=== PATIENT | female | born 1930 | race Caucasian/White ===

== ENCOUNTER 2016-12-02 14:27 | Emergency (ER) | payer MEDICARE, BC ==
--- OUTSIDE RECORDS SUMMARY | 2016-12-02 14:56 | XMS REPORT | Summary of Care ---
:1930 Author Organization [facility] Address [address] [place] [id number] Care Team Providers Name Role Phone Rasta Nolan Primary Care Physician Encounter Date(s): 08/19/16 - 08/19/[address] [address] [facility] Discharge Diagnosis: Common wart Discharge Diagnosis: Medicare annual wellness visit, subsequent Discharge Disposition: 01 Discharged to Home or Self Care Attending Physician: Rasta Nolan MD Referring Physician: Rasta Nolan MD Vital Signs Most recent to oldest [Reference Range]: 1 Peripheral Pulse Rate [60-100 bpm] 66 bpm (08/19/16 8:42 AM) SpO2 97 % (08/19/16 8:42 AM) Blood Pressure [90-130/60-90 mmHg] 140/60mmHg *HI* (08/19/16 8:42 AM) Mean Arterial Pressure, Cuff 87 mmHg (08/19/16 8:42 AM) Height/Length Measured 151 cm (08/19/16 8:42 AM) Weight Dosing 66.7 kg (08/19/16 8:42 AM) Weight Measured 66.7 kg (08/19/16 8:42 AM) BSA Measured 1.63 m2 (08/19/16 8:42 AM) Body Mass Index Measured 29.25 kg/m2 (08/19/16 8:42 AM) Problem List Condition Effective Dates Status Health Status Informant Benign hypertension(Confirmed) Active Tear of medial meniscus of left 2011 Resolved knee(Confirmed) Allergies, Adverse Reactions, Alerts Substance Reaction Severity Status Novocain Active Medications aspirin 81 mg oral enteric coated tablet 1 tab(s), Oral, Daily, 0 Refill(s) Start Date: 11/17/13 Status: OrderedBactrim DS 800 mg-160 mg oral tablet 1 tab(s), Oral, BID, X 3 days, # 6 tab(s), 0 Refill(s), Start Date: 08/21/15 14: 32:00 DRY CURER, Pharmacy: [facility] Start Date: 08/21/15 Stop Date: 08/24/15 Status: CompletedBactrim DS 800 mg-160 mg oral tablet 1 tab(s), Oral, BID, X 3 days, # 6 tab(s), 0 Refill(s), Start Date: 10/22/14 14: 38:00 CDT, Pharmacy: [place], [place] Start Date: 10/22/14 Stop Date: 10/25/14 Status: CompletedCipro 250 mg oral tablet 1 tab(s), Oral, q12hr interval, # 10 tab(s), 0 Refill(s), Start Date: 08/26/15 15:53:00 DRY CURER, Pharmacy: [facility] Start Date: 08/26/15 Stop Date: 01/09/16 Status: CompletedCipro 500 mg oral tablet 1 tab(s), Oral, BID, X 3 days, # 6 tab(s), 0 Refill(s), Start Date: 05/25/16 14: 02:00 CDT, Pharmacy: [facility] Start Date: 05/25/16 Stop Date: 05/28/16 Status: CompletedCipro 500 mg oral tablet 1 tab(s), Oral, q12hr, X 5 days, # 10 tab(s), 0 Refill(s), Start Date: 02/04/15 14:19:00 CDT, [facility] [place] [place] Start Date: 02/04/15 Stop Date: 02/09/15 Status: Completedlosartan 25 mg oral tablet 1 tab(s), Oral, Daily, # 30 tab(s), 5 Refill(s), Pharmacy: [facility] [place] Start Date: 11/17/13 Stop Date: 05/14/14 Status: Completedlosartan 25 mg oral tablet 1 tab(s), Oral, Daily, # 30 tab(s), 11 Refill(s), Start Date: 12/17/14 16:20:00 CDT, Pharmacy: [facility] [place], [place] Start Date: 12/17/14 Stop Date: 03/29/15 Status: Discontinuedlosartan 25 mg oral tablet 1 tab(s), Oral, Daily, # 30 tab(s), 11 Refill(s), Pharmacy: [facility] [place] Start Date: 05/14/14 Stop Date: 12/17/14 Status: Discontinuedlosartan 25 mg oral tablet 1 tab(s), Oral, Daily, # 30 tab(s) Start Date: 11/17/13 Stop Date: 11/17/13 Status: Discontinuedpotassium citrate 10 mEq oral tablet, extended release 1 tab(s), Oral, Daily, 0 Refill(s), Start Date: 06/20/15 9:00:00 DRY CURER Start Date: 06/20/15 Status: OrderedTenoretic 50 1 tab(s), Oral, Daily, 0 Refill(s) Start Date: 11/17/13 Stop Date: 06/18/14 Status: DiscontinuedTenoretic 50 oral tablet 1 tab(s), Oral, Daily, # 30 tab(s), 11 Refill(s), Start Date: 12/17/14 16:19:58 CDT, Pharmacy: [facility] [place] Start Date: 12/17/14 Stop Date: 12/26/15 Status: CompletedTenoretic 50 oral tablet 1 tab(s), Oral, Daily, # 30 tab(s), 5 Refill(s), Start Date: 06/18/14 8:44:00 DRY CURER, Pharmacy: [facility] [place] Start Date: 06/18/14 Stop Date: 12/17/14 Status: DiscontinuedTenoretic 50 oral tablet 1 tab(s), Oral, Daily, # 30 tab(s), 11 Refill(s), Start Date: 12/26/15 9:41:05 CDT Start Date: 12/26/15 Status: Ordered Results Patient Viewable Results Most recent to oldest [Reference Range]: 1 Sodium Lvl [136-145 mmol/L] 141 mmol/L (08/19/16 9:44 AM) Potassium Lvl [3.5-5.1 mmol/L] 3.5 mmol/L (08/19/16 9:44 AM) Chloride Lvl [98-107 mmol/L] 101 mmol/L (08/19/16 9:44 AM) Bicarbonate Lvl [21-32 mmol/L] 30 mmol/L (08/19/16 9:44 AM) Anion Gap [12-19] 14 (08/19/16 9:44 AM) Glucose Lvl [74-106 mg/dL] 114 mg/dL *HI* (08/19/16 9:44 AM) BUN [7-18 mg/dL] 18 mg/dL (08/19/16 9:44 AM) Creatinine Lvl [0.55-1.02 mg/dL] 0.82 mg/dL (08/19/16 9:44 AM) BUN/Creat Ratio 22 *NA* (08/19/16 9:44 AM) eGFR AA [>=60] >60 (08/19/16 9:44 AM) eGFR ARLEY [>=60] >60 (08/19/16 9:44 AM) Calcium Lvl [8.5-10.1 mg/dL] 10.1 mg/dL (08/19/16 9:44 AM) Immunizations Given and Recorded Vaccine Date Status Refusal Reason influenza virus vaccine, inactivated 05/18/16 Given influenza virus vaccine, inactivated 04/19/15 Given influenza virus vaccine, inactivated 04/23/14 Given influenza virus vaccine, inactivated 05/09/13 Recorded pneumococcal 13-valent conjugate vaccine 06/18/14 Given pneumococcal 23-polyvalent vaccine 05/26/07 Recorded tetanus-diphth toxoids (Td) adult/adol 03/19/08 Recorded zoster vaccine live 03/22/13 Recorded Procedures Procedure Date Related Diagnosis Body Site Mammogram - screening1 01/16/13 Right total knee arthroplasty2 08/22/12 EKG3 08/09/12 Left total knee arthroplasty2011 Arthroscopy of knee5 2010 Colonoscopy6 01/28/10 Colonoscopy7 11/09/07 Cholecystectomy 2000 Appendectomy 1982 Hysterectomy 1982 Tonsillectomy and adenoidectomy [id number] medial wvmdjydjcyr9ztljgnj polyp. Internal cxxaqgpkvge9gsykgky polyp Social History No data available for this section Assessment and Plan No data available for this section
--- OUTSIDE RECORDS SUMMARY | 2016-12-02 14:56 | XMS REPORT | CCD ---
:1930 Author Name DANIEL ARRINGTON Address [address] [facility] Unavailable [place], [place] [id number] Care Team Providers Name Role Phone IVÁN ALEJANDRA Attending Physician Unavailable Vital Signs Vital Sign Value Unit Date/Time Recent/Initial? Weight Measured 151.7 lbs 03/13/2015 13:40 Initial VS Height 62 in 03/13/2015 13:40 Initial VS BMI (Body Mass Index) 27.75 kg/m^2 03/13/2015 13:40 Initial VS BSA (Body Surface Area) 1.73 m^2 03/13/2015 13:40 Initial VS Allergies Allergy Code Allergy Type Reaction Status NOVACAINE {Clinical monitoring unavailable} 0 Drug allergy SWELLING Active Procedures Procedure Code Procedure Type Date CATARAC PHACOEMULS ASPIR 1341 ICD-9 CM, Volume 3 03/19/2015 INSERT LENS AT CATAR EXT 1371 ICD-9 CM, Volume 3 03/19/2015 History of Immunizations Unknown or Not Available. Problems Unknown or Not Available. Results Unknown or Not Available. Active Medications Unknown or Not Available. Medications Administered During Visit Unknown or Not Available. 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 Discharge Instructions You were admitted to [facility] on 03/19/2015 with a principal diagnosis of SENILE NUCLEAR CATARACT. You had the following procedures done:CATARACT SURG W/IOL 1 STAGEINSERT LENS AT CATAR EXT You were discharged from [facility] on 03/19/2015. Should you have any questions prior to discharge, please contact a member of your healthcare team. If you have left the hospital and have any questions, please contact your primary care physician. Chief Complaint and Reason For Visit Unknown or Not Available. Function Status Unknown or Not Available. Plan of Care Unknown or Not Available. Referral/Transition of Care Unknown or Not Available.
--- OUTSIDE RECORDS SUMMARY | 2016-12-02 14:56 | XMS REPORT | Summary of Care ---
:1930 Author Organization [facility] Address [facility] [place] [address]- Care Team Providers Name Role Phone Rasta Nolan Primary Care Physician Encounter Date(s): 09/17/16 - 09/17/[address] [address] Discharge Disposition: 01 Discharged to Home or Self Care Attending Physician: Rasta Nolan MD Admitting Physician: Rasta Nolan MD Vital Signs No data available for this section Problem List Condition Effective Dates Status Health [...] 0 Refill(s), Start Date: 08/21/15 14: 32:00 ECHO VASC TECH, [facility]acy: [facility] Start Date: 08/21/15 Stop Date: 08/24/15 Status: CompletedBactrim DS 800 mg-160 mg oral tablet 1 tab(s), Oral, BID, X 3 days, # 6 tab(s), 0 Refill(s), Start Date: 10/22/14 14: 38:00 CDT, Pharmacy: [place], [place] Start Date: 10/22/14 Stop Date: 10/25/14 Status: CompletedCipro 250 mg oral tablet 1 tab(s), Oral, q12hr interval, # 10 tab(s), 0 Refill(s), Start Date: 08/26/15 15:53:00 ECHO VASC TECH, Pharmacy: [facility] Start Date: 08/26/15 Stop Date: 01/09/16 Status: CompletedCipro 500 mg oral tablet 1 tab(s), Oral, BID, X 3 days, # 6 tab(s), 0 Refill(s), Start Date: 05/25/16 14: 02:00 CDT, Pharmacy: [facility] Start Date: 05/25/16 Stop Date: 05/28/16 Status: CompletedCipro 500 mg oral tablet 1 tab(s), Oral, q12hr, X 5 days, # 10 tab(s), 0 Refill(s), Start Date: 02/04/15 14:19:00 CDT, Pharmacy: [facility] [place], [place] Start Date: 02/04/15 Stop Date: 02/09/15 Status: Completedlosartan 25 mg oral tablet 1 tab(s), Oral, Daily, # 30 tab(s), 5 Refill(s), [place] Start Date: 11/17/13 Stop Date: 05/14/14 Status: Completedlosartan 25 mg oral tablet 1 tab(s), Oral, Daily, # 30 tab(s), 11 Refill(s), Start Date: 12/17/14 16:20:00 CDT, [facility] [place] Start Date: 12/17/14 Stop Date: 03/29/15 Status: Discontinuedlosartan 25 mg oral tablet 1 tab(s), Oral, Daily, # 30 tab(s), 11 Refill(s), [facility] [place] [place] Start Date: 05/14/14 Stop Date: 12/17/14 Status: Discontinuedlosartan 25 mg oral tablet 1 tab(s), Oral, Daily, # 30 tab(s) Start Date: 11/17/13 Stop Date: 11/17/13 Status: Discontinuedomeprazole 20 mg oral delayed release capsule 1 cap(s), Oral, Daily, # 60 cap(s), 0 Refill(s), Start Date: 09/16/16 16:43:00 ECHO VASC TECH, Pharmacy: [facility] Start Date: 09/16/16 Status: Orderedpotassium citrate 10 mEq oral tablet, extended release 1 tab(s), Oral, Daily, 0 Refill(s), Start Date: 06/20/15 9:00:00 ECHO VASC TECH Start Date: 06/20/15 Status: OrderedTenoretic 50 1 tab(s), Oral, Daily, 0 Refill(s) Start Date: 11/17/13 Stop Date: 06/18/14 Status: DiscontinuedTenoretic 50 oral tablet 1 tab(s), Oral, Daily, # 30 tab(s), 11 Refill(s), Start Date: 12/17/14 16:19:58 CDT, Pharmacy: [place], [place] Start Date: 12/17/14 Stop Date: 12/26/15 Status: CompletedTenoretic 50 oral tablet 1 tab(s), Oral, Daily, # 30 tab(s), 5 Refill(s), Start Date: 06/18/14 8:44:00 ECHO VASC TECH, Pharmacy: [place], [place] Start Date: 06/18/14 Stop Date: 12/17/14 Status: DiscontinuedTenoretic 50 oral tablet 1 tab(s), Oral, Daily, # 30 tab(s), 11 Refill(s), Start Date: 12/26/15 9:41:05 CDT Start Date: 12/26/15 Status: Ordered Results Patient Viewable Results Most recent to oldest [Reference Range]: 1 FE [50-170 mcg/dL] 58 mcg/dL (09/17/16 7:38 AM) Immunizations Vaccine Date Refusal Reason influenza virus vaccine, inactivated 05/18/16 influenza virus vaccine, inactivated 04/19/15 influenza virus vaccine, inactivated 04/23/14 influenza virus vaccine, inactivated 05/09/13 pneumococcal 13-valent conjugate vaccine 06/18/14 pneumococcal 23-polyvalent vaccine 05/26/07 tetanus-diphth toxoids (Td) adult/adol 03/19/08 zoster vaccine live 03/22/13 Procedures Procedure Date Related Diagnosis Body Site Mammogram - screening1 01/16/13 Right total knee arthroplasty2 08/22/12 EKG3 08/09/12 Left total knee arthroplasty4 2011 Arthroscopy of knee5 2010 Colonoscopy6 01/28/10 Colonoscopy7 11/09/07 Cholecystectomy 2000 Appendectomy 1982 Hysterectomy 1982 Tonsillectomy and adenoidectomy [id number] medial brffwmhfksf6izegmmp polyp. Internal doewdyjpjbc6rhvoehn polyp Social History No data available for this section Assessment and Plan No data available for this section
--- OUTSIDE RECORDS SUMMARY | 2016-12-02 14:56 | XMS REPORT | CCD ---
:1930 Author Name DANIEL ARRINGTON Address [address] Unavailable [place], [place] [id number] Care Team Providers Name Role Phone IVÁN ALEJANDRA Attending Physician Unavailable Vital Signs Vital Sign Value Unit Date/Time Recent/Initial? Weight Measured 151.6 lbs 03/26/2015 10:14 Initial VS Height 61.5 in 03/26/2015 10:14 Initial VS BMI (Body Mass Index) 28.18 kg/m^2 03/26/2015 10:14 Initial VS BSA (Body Surface Area) 1.73 m^2 03/26/2015 10:14 Initial VS Allergies Allergy Code Allergy Type Reaction Status NOVACAINE {Clinical monitoring unavailable} 0 Drug allergy SWELLING Active Procedures Procedure Code Procedure Type Date CATARAC PHACOEMULS ASPIR 1341 ICD-9 CM, Volume 3 03/26/2015 INSERT LENS AT CATAR EXT 1371 ICD-9 CM, Volume 3 03/26/2015 History of Immunizations Unknown or Not Available. Problems Unknown or Not Available. Results Unknown or Not Available. Active Medications Unknown or Not Available. Medications Administered During Visit Unknown or Not Available. Encounters Encounter Diagnosis Diagnosis Code Start Date SENILE NUCLEAR CATARACT 19163 03/26/2015 Social History Smoking Status Code Start Date End Date Never smoker [id number] Patient Decision Aids Unknown or Not Available. Discharge Instructions You were admitted to [facility] on 03/26/2015 with a principal diagnosis of SENILE NUCLEAR CATARACT. You had the following procedures done:CATARACT SURG W/IOL 1 STAGEINSERT LENS AT CATAR EXT You were discharged from [facility] on 03/26/2015. Should you have any questions prior to [...]
--- OUTSIDE RECORDS SUMMARY | 2016-12-02 14:56 | XMS REPORT | Summary of Care ---
:1930 Author Organization [facility] Address [address] [place] [id number] Care Team Providers Name Role Phone Rasta Nolan Primary Care Physician Encounter Date(s): 01/09/16 - 01/09/[address] [address] [facility] Discharge Diagnosis: Benign hypertension Discharge Disposition: Discharged to Home or Self Care Attending Physician: Rasta Nolan MD Referring Physician: Rasta Nolan MD Vital Signs Most recent to oldest [Reference Range]: 1 2 Peripheral Pulse Rate [60-100 bpm] 60 bpm (01/09/16 8:06 AM) Blood Pressure [90-130/60-90 mmHg] 120/64mmHg 140/80mmHg (01/09/16 8:29 AM) *HI* (01/09/16 8:06 AM) Mean Arterial Pressure, Cuff 83 mmHg 100 mmHg (01/09/16 8:29 AM) (01/09/16 8:06 AM) Most recent to oldest [Reference Range]: 1 2 Height/Length Measured 151 cm (01/09/16 8:06 AM) Weight Dosing 68.7 kg (01/09/16 8:06 AM) Weight Measured 68.7 kg (01/09/16 8:06 AM) BSA Measured 1.65 m2 (01/09/16 8:06 AM) Body Mass Index Measured 30.13 kg/m2 (01/09/16 8:06 AM) Problem List Condition Effective Dates Status [...] 0 Refill(s), Start Date: 08/21/15 14: 32:00 RUBY RAILS DEVELOPER, Pharmacy: [facility] Start Date: 08/21/15 Stop Date: 08/24/15 Status: CompletedBactrim DS 800 mg-160 mg oral tablet 1 tab(s), Oral, BID, X 3 days, # 6 tab(s), 0 Refill(s), Start Date: 10/22/14 14: 38:00 CDT, Pharmacy: [facility] [place], [place] Start Date: 10/22/14 Stop Date: 10/25/14 Status: CompletedCipro 250 mg oral tablet 1 tab(s), Oral, q12hr interval, # 10 tab(s), 0 Refill(s), Start Date: 08/26/15 15:53:00 RUBY RAILS DEVELOPER, Pharmacy: [facility] Start Date: 08/26/15 Stop Date: 01/09/16 Status: CompletedCipro 500 mg oral tablet 1 tab(s), Oral, q12hr, X 5 days, # 10 tab(s), 0 Refill(s), Start Date: 02/04/15 14:19:00 CDT, Pharmacy: [facility] [place], [place] Start Date: 02/04/15 Stop Date: 02/09/15 Status: Completedlosartan 25 mg oral tablet 1 tab(s), Oral, Daily, # 30 tab(s), 5 Refill(s), Pharmacy: [facility] [place], [place] Start Date: 11/17/13 Stop Date: 05/14/14 Status: Completedlosartan 25 mg oral tablet 1 tab(s), Oral, Daily, # 30 tab(s), 11 Refill(s), Start Date: 12/17/14 16:20:00 CDT, Pharmacy: [facility] [place], [place] Start Date: 12/17/14 Stop Date: 03/29/15 Status: Discontinuedlosartan 25 mg oral tablet 1 tab(s), Oral, Daily, # 30 tab(s), 11 Refill(s), [facility] [place] Start Date: 05/14/14 Stop Date: 12/17/14 Status: Discontinuedlosartan 25 mg oral tablet 1 tab(s), Oral, Daily, # 30 tab(s) Start Date: 11/17/13 Stop Date: 11/17/13 Status: Discontinuedpotassium citrate 10 mEq oral tablet, extended release 1 tab(s), Oral, Daily, 0 Refill(s), Start Date: 06/20/15 9:00:00 RUBY RAILS DEVELOPER Start Date: 06/20/15 Status: OrderedTenoretic 50 1 tab(s), Oral, Daily, 0 Refill(s) Start Date: 11/17/13 Stop Date: 06/18/14 Status: DiscontinuedTenoretic 50 oral tablet 1 tab(s), Oral, Daily, # 30 tab(s), 11 Refill(s), Start Date: 12/17/14 16:19:58 CDT, [facility] [place] Start Date: 12/17/14 Stop Date: 12/26/15 Status: CompletedTenoretic 50 oral tablet 1 tab(s), Oral, Daily, # 30 tab(s), 5 Refill(s), Start Date: 06/18/14 8:44:00 RUBY RAILS DEVELOPER, Pharmacy: [place], [place] Start Date: 06/18/14 Stop Date: 12/17/14 Status: DiscontinuedTenoretic 50 oral tablet 1 tab(s), Oral, Daily, # 30 tab(s), 11 Refill(s), Start Date: 12/26/15 9:41:05 CDT Start Date: 12/26/15 Status: Ordered Results No data available for this section Immunizations Vaccine Date Refusal Reason influenza virus vaccine, inactivated 04/19/15 influenza virus [...] Appendectomy 1982 Hysterectomy 1982 Tonsillectomy and adenoidectomy [id number] medial iubfnydownc9suaxjsc polyp. Internal [id number] polyp Social History No data available for this section Assessment and Plan No data available for this section
--- OUTSIDE RECORDS SUMMARY | 2016-12-02 14:56 | XMS REPORT | Summary of Care ---
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, Pharmacy: [facility] Start Date: 08/21/15 Stop Date: 08/24/15 Status: CompletedBactrim DS 800 mg-160 mg oral tablet 1 tab(s), Oral, BID, X 3 days, # 6 tab(s), 0 Refill(s), Start Date: 10/22/14 14: 38:00 CDT, Pharmacy: [place], [place] Start Date: 10/22/14 Stop Date: 10/25/14 Status: CompletedCipro 250 mg oral tablet 1 tab(s), Oral, q12hr interval, # 10 tab(s), 0 Refill(s), Start Date: 08/26/15 15:53:00 POTATO CHIP PROCESSING SUPERVISOR, Pharmacy: [facility] Start Date: 08/26/15 Stop Date: 01/09/16 Status: CompletedCipro 500 mg oral tablet 1 tab(s), Oral, BID, X 3 days, # 6 tab(s), 0 Refill(s), Start Date: 05/25/16 14: 02:00 CDT, Pharmacy: [facility] Start Date: 05/25/16 Stop Date: 05/28/16 Status: CompletedCipro 500 mg oral tablet 1 tab(s), Oral, q12hr, X 5 days, # 10 tab(s), 0 Refill(s), Start Date: 02/04/15 14:19:00 CDT, [facility] [place] [place] Start Date: 02/04/15 Stop Date: 02/09/15 Status: Completedlosartan 25 mg oral tablet 1 tab(s), Oral, Daily, # 30 tab(s), 5 Refill(s), [facility] [place] [place] Start Date: 11/17/13 Stop Date: 05/14/14 Status: Completedlosartan 25 mg oral tablet 1 tab(s), Oral, Daily, # 30 tab(s), 11 Refill(s), Start Date: 12/17/14 16:20:00 CDT, [facility] [place] Start Date: 12/17/14 Stop Date: 03/29/15 Status: Discontinuedlosartan 25 mg oral tablet 1 tab(s), Oral, Daily, # 30 tab(s), 11 Refill(s), [facility] [place] [place] Start Date: 05/14/14 Stop Date: 12/17/14 Status: Discontinuedlosartan 25 mg oral tablet 1 tab(s), Oral, Daily, # 30 tab(s) Start Date: 11/17/13 Stop Date: 11/17/13 Status: Discontinuedomeprazole 20 mg oral delayed release capsule 1 cap(s), Oral, Daily, # 60 cap(s), 0 Refill(s), Start Date: 09/16/16 16:43:00 POTATO CHIP PROCESSING SUPERVISOR, Pharmacy: [facility] Start Date: 09/16/16 Status: Orderedpotassium citrate 10 mEq oral tablet, extended release 1 tab(s), Oral, Daily, 0 Refill(s), Start Date: 06/20/15 9:00:00 POTATO CHIP PROCESSING SUPERVISOR Start Date: 06/20/15 Status: OrderedTenoretic 50 1 tab(s), Oral, Daily, 0 Refill(s) Start Date: 11/17/13 Stop Date: 06/18/14 Status: DiscontinuedTenoretic 50 oral tablet 1 tab(s), Oral, Daily, # 30 tab(s), 11 Refill(s), Start Date: 12/17/14 16:19:58 CDT, [facility] [place] Start Date: 12/17/14 Stop Date: 12/26/15 Status: CompletedTenoretic 50 oral tablet 1 tab(s), Oral, Daily, # 30 tab(s), 5 Refill(s), Start Date: 06/18/14 8:44:00 POTATO CHIP PROCESSING SUPERVISOR, Pharmacy: [place], [place] Start Date: 06/18/14 Stop Date: 12/17/14 Status: DiscontinuedTenoretic 50 oral tablet 1 tab(s), Oral, Daily, # 30 tab(s), 11 Refill(s), Start Date: 12/26/15 9:41:05 CDT Start Date: 12/26/15 Status: Ordered Results Patient Viewable Results Most recent to oldest [Reference Range]: 1 WBC [4.8-10.8 thou/mm3] 6.9 thou/mm3 (09/17/16 7:39 AM) RBC [4.20-5.40 Mil/mm3] 4.71 Mil/mm3 (09/17/16 7:39 AM) Hgb [12.0-16.0 g/dL] 13.6 g/dL (09/17/16 7:39 AM) Hct [37.0-47.0 %] 39.9 % (09/17/16 7:39 AM) MCV [80.0-94.0 fL] 84.7 fL (09/17/16 7:39 AM) MCH [25.0-38.0 pg/cell] 28.9 pg/cell (09/17/16 7:39 AM) MCHC [31.0-37.0 g/dL] 34.1 g/dL (09/17/16 7:39 AM) RDW [11.6-14.8 %] 14.1 % (09/17/16 7:39 AM) Platelet [130-400 thou/mm3] 265 thou/mm3 (09/17/16 7:39 AM) MPV [0.0-99.8 fL] 9.5 fL (09/17/16 7:39 AM) Immunizations Vaccine Date Refusal Reason influenza [...] Colonoscopy6 01/28/10 Colonoscopy7 11/09/07 Cholecystectomy 2000 Appendectomy 1981 Hysterectomy 1981 Tonsillectomy and adenoidectomy [id number] medial icrygbkpfwh1bkscfpr polyp. Internal [id number] polyp Social History No data available for this section Assessment and Plan No data available for this section
[2016-12-02 15:04] LABS: Hemoglobin 14.6 gm/dL (12.5-16.0); Mean Cell Volume 82.9 fl (78-100); Mean Corpuscular Hemoglobin 28.1 pg (27-31); Neutrophil # 4.7 K/mm3 (1.3-6.0); Neutrophil % 71.5 % (42-75.0); Platelet Count 263 K/mm3 (150-450); Red Blood Count 5.19 M/mm3 (4.2-5.4); Red Cell Distribution Width 13.3 % (11.5-14.0); White Blood Count 6.5 K/mm3 (4.0-10.5)
--- NOTE | 2016-12-02 15:05 | ERNOTE ---
Dizziness ER Record Presenting Symptoms: dizziness Time Seen by Provider: 12/02/16 14:30 Source: patient Immunizations: IMMUNIZATION HX Immunizations Up to Date Yes History of Influenza Vaccine Yes Hx Pneumococcal Vaccination Yes Allergies/Adverse Reactions: Allergies Allergy/AdvReac Type Severity Reaction Status Date / Time No Known Allergies Allergy Unverified 12/02/16 14:42 Home Medications: HOME MEDICATIONS Aspirin [Aspirin EC] 81 mg PO DAILY 12/02/16 [Last Taken Unknown] Lisinopril [Zestril] 10 mg PO DAILY #30 tablet 12/02/16 [Last Taken Unknown] Metoprolol Succinate [Toprol Xl] 50 mg PO DAILY 12/02/16 [Last Taken Unknown] Nitrofurantoin/Nitrofuran Mac [Macrobid] 100 mg PO Q12H #14 cap 12/02/16 [Last Taken Unknown] Potassium Gluconate [Potassium] 99 mg PO DAILY 12/02/16 [Last Taken Unknown] - History of Present Illness Narrative: Patient states that she has been lightheaded on and off for about two weeks. Her symptoms got worse today and her PCP is not in the office so she is coming to the ER for evaluation. The symptoms usually last just a few minutes and occurred about twice a day. She was treated for a UTI with antibiotics which she finished about ten days ago , has increased urinary frequency again. She saw her PCP two days ago and her HTN meds where changes from atenolol/chlorthal to metoprolol, took the first dose yesterday. She denies any additional symptoms or aggravating or alleviating factors affecting the lightheadedness Timing and Duration: gone now Severity: max: moderate Associated Symptoms: Absent: hearing loss, ear pain, nausea, vomiting, headache , weakness, numbness, light headedness Sense of movement: Absent: spinning Usually:: Present: walks w/o assistance Modifying Factors - (Improves): Reports: nothing. Denies: changing position, movement of head Modifying Factors - (Worsens): Reports: nothing. Denies: changing position, movement of head Prior Treament: Reports: recently seen. Denies: currently on antibiotics Review of Systems - Review of Systems Constitutional: Present: recent illness. Absent: fever, chills EYE: Absent: blurred vision, double vision ENT: Absent: nose congestion Respiratory: Absent: shortness of breath Cardiology: Absent: chest pain, palpitations Gastrointestinal/Abdominal: Absent: nausea, vomiting, diarrhea, abdominal pain Genitourinary: Present: no symptoms reported. Absent: frequency, dysuria Musculoskeletal: Absent: neck pain Neurological: Absent: headache, weakness, numbness - Patient's Past Medical History Patient History - Medical: UTI'S Patient History - Cardiac/Respiratory: Hypertension Patient History - Cancer: No Hx of Cancer Patient History - Surgical Procedures: Appendectomy, Hysterectomy, Total Knee Replacement Patient History - Other: None LMP (females 10-50): Menopausal - Social History Living Situations: home Psych History: No pertinent hx Smoking Status: Never smoker Alcohol Use: none Drug Use: none - Immunizations Immunizations Up to Date: Yes Hx Pneumococcal Vaccination: Yes History of Influenza Vaccine: Yes Physical Exam - Physical Exam General Appearance: Present: wd/wn, no apparent distress Eye Exam: Normal inspection: bilateral, PERRL: bilateral, EOMI: bilateral Ears, Nose, Throat: Present: normal ENT inspection, normal pharynx Neck: Present: normal inspection, nontender Respiratory: Present: no respiratory distress, normal breath sounds, no accessory muscle use, lungs clear Cardiovascular/Chest: Present: regular rate, rhythm, no murmur Gastrointestinal/Abdominal: Present: normal bowel sounds, nontender, nondistended Extremity Exam: Present: no edema Neurological Exam: Present: alert, oriented, normal mood/affect, no motor/ sensory deficits, 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 - Vital Signs Patient's Vital Signs:: I have reviewed the patient's vital signs. Vital Signs: Vital Signs 12/02/16 14:35 Temperature 36.5 C Pulse Rate 74 Respiratory 16 Rate Blood Pressure 147/87 O2 Sat by Pulse 98 Oximetry - EKG EKG: NSR, other - frequent PVCs EKG read: Interp. by me - Progress/Reassessment Chief Complaint: Dizziness Progress Note-Subjective: 12/02/16 17:03 discussed results with patient and family, HR on monitor repeatedly goes down to 50's, discussed that metoprolol might not be a the best medication for her blood pressure as the intermittent low heart rate might be a cause of her symptoms, She is not aware of having been on any other medications before, suggested lisinopril, check with her PCP, if he does not provide different prescription by tomorrow start taking lisinopril Departure Clinical Impression: Sinus bradycardia UTI (urinary tract infection) Qualifiers: Urinary tract infection type: acute cystitis Hematuria presence: without hematuria Qualified Code(s): N30.00 - Acute cystitis without hematuria - Departure Disposition: Home self-care Condition: Good Instructions: Bradycardia, Urinary Tract Infection, Adult, [id number] Additional Instructions: since the blood pressure medication is reducing your heart rate as well as your blood pressure and your heart rate goes low (to 55 beat per minute) I think you should be on a different blood pressure medication stop the metoprolol, try to get hold of your doctor, unless you get a different prescription by tomorrow start taking the medication prescribed here Referrals: Rasta Nolan MD [Primary Care Provider] - Prescriptions: Lisinopril [Zestril] 10 mg PO DAILY #30 tablet Nitrofurantoin/Nitrofuran Mac [Macrobid] 100 mg PO Q12H #14 cap
[2016-12-02 15:18] LABS: ALT 23 U/L (19-67); AST 20 U/L (0-48); Alkaline Phosphatase * 68 U/L (50-170); Anion Gap 8.6 mmol/L (6.8-13.8); BUN/Creatinine Ratio 20.2 (9.0-21.6); Bilirubin, Total 0.6 mg/dL (0.0-1.1); Blood Urea Nitrogen 17 mg/dL (3-23); Ca. Corrected For Albumin 9.8 mg/dL (8.4-10.2); Calcium * 10.1 mg/dL (7.9-10.9); Carbon Dioxide 34.5 mmol/L (24-32.6); Chloride 100 mmol/L (97-106); Glucose * 113 mg/dL (70-110); Potassium 3.1 mmol/L (3.4-4.6); Sodium 140 mmol/L (132-142); Total Protein 7.9 gm/dL (6.2-8.2); Troponin I Less than 0.017 ng/ml (0.00-0.10)
[2016-12-02 16:26] LABS: Urine Bilirubin Negative (NEGATIVE); Urine Blood Negative /ul (NEGATIVE); Urine Ketone Negative (NEGATIVE); Urine Nitrite Negative (NEGATIVE); Urine Protein Negative (NEGATIVE); Urine Urobilinogen Normal (NORMAL)
[2016-12-02 16:33] LABS: Urine Appearance Clear; Urine Color Yellow
[2016-12-02 16:34] LABS: Urine Bacteria TRACE; Urine RBC None Seen /hpf (0-5)
[2016-12-02 17:08] VITALS: BP 157/66
== END 2016-12-02 17:15 | disposition home or self-care (01) ==
LOC: ER 14:27
DX: R00.1 Bradycardia, unspecified (principal); N30.00 Acute cystitis without hematuria; I10 Essential (primary) hypertension

== ENCOUNTER 2020-07-04 13:31 | Observation (INO) ==
[2020-07-04] MEDS ORDERED: diphenhydrAMINE HCL 50 MG/ML VIAL IM ONE (17:30)
[2020-07-04] MEDS ORDERED: MORPHINE SULFATE 10 MG/ML SYRG IM ONE (17:30)
[2020-07-04] MEDS ORDERED: ORPHENADRINE CITRATE 30 MG/ML VIAL IM ONE (17:30)
--- NOTE | 2020-07-04 17:35 | ERNOTE ---
Back Pain ER HPI Date of Service: 07/04/20 Presenting Symptoms: other - Back pain Time Seen by Provider: 07/04/20 17:09 Source: patient Immunizations: IMMUNIZATION HX Immunizations Up to Date Yes History of Influenza Vaccine Yes Hx Pneumococcal Vaccination No Allergies/Adverse Reactions: Allergies No Known Allergies Allergy (Verified 07/04/20 13:57) Home Medications: HOME MEDICATIONS acetaminophen 325 mg tablet 650 mg PO Q4H PRN tab 12/12/18 [Last Taken Unknown] apixaban 5 mg tablet 2.5 mg PO BID 12/12/18 [Last Taken Unknown] calcium carbonate 500 mg calcium (1,250 mg) chewable tablet 500 mg PO BID PRN 12/12/18 [Last Taken Unknown] docusate sodium 100 mg capsule 100 mg PO BID PRN 12/12/18 [Last Taken Unknown] metoprolol tartrate 25 mg tablet 12.5 mg PO BID tab 12/12/18 [Last Taken Unknown] valacyclovir 500 mg tablet 1,000 mg PO Q8H PRN #6 tab 12/14/18 [Last Taken Unknown] cranberry fruit 450 mg tablet 450 mg PO DAILY 07/18/19 [Last Taken Unknown] lorazepam 0.5 mg tablet 0.5 mg PO TID PRN #90 tab 04/22/20 [Last Taken Unknown] Amox Tr/Potassium Clavulanate [Augmentin 875-125 Tablet] 875 mg PO Q12H #20 tab 06/16/20 [Last Taken Unknown] ondansetron 8 mg disintegrating tablet 8 mg PO Q8H PRN #20 tab 06/18/20 [Last Taken Unknown] Acetaminophen 500 mg PO PRN 07/04/20 [Last Taken Unknown] Ascorbic Acid [Vitamin C] 500 mg PO BID 07/04/20 [Last Taken Unknown] Bacillus Coagulans/Inulin [Probiotic Formula (inulin)] 1 cap PO BID 07/04/20 [Last Taken Unknown] Bismuth Subsalicylate [Pepto Bismol 262 MG/15 ML Suspension] 15 ml PO QID PRN 07/04/20 [Last Taken Unknown] Cholecalciferol (Vitamin D3) [Vitamin D3] 1,000 unit PO DAILY 07/04/20 [Last Prasad en Unknown] Cyanocobalamin (Vitamin B-12) [Vitamin B-12] 1,000 mcg PO DAILY 07/04/20 [Last Taken Unknown] Donepezil HCl 1 tab PO 1800 07/04/20 [Last Taken Unknown] Estradiol 0.5 gm VG TUFR 07/04/20 [Last Taken Unknown] Guaifenesin/Codeine Phosphate [Guaifenesin-Codeine Liquid] 5 ml PO Q6H PRN 07/04/20 [Last Taken Unknown] Loperamide HCl [Anti-Diarrheal] 2 mg PO TID 07/04/20 [Last Taken Unknown] Loperamide HCl [Imodium A-D] 2 mg PO DAILY PRN 07/04/20 [Last Taken Unknown] Magnesium Carb/Aluminum Hydrox [Gaviscon Es Tablet Chew] 2 tab PO BID PRN 07/04/20 [Last Taken Unknown] Melatonin [Melatin] 3 mg PO 1800 07/04/20 [Last Taken Unknown] Methenamine Hippurate 1 tab PO DAILY 07/04/20 [Last Taken Unknown] Omeprazole 1 tab PO DAILY 07/04/20 [Last Taken Unknown] Propafenone HCl 1 tab PO BID 07/04/20 [Last Taken Unknown] acetaminophen 300 mg-codeine 60 mg tablet 1 tab PO Q6H PRN #60 tab 07/04/20 [Last Taken Unknown] Narrative: This patient is an 89-year-old female who is here with severe back pain. She has had back pain for the past couple weeks but it has gotten worse. She has not been able to get out of bed on her own the past couple days because of the pain. She has a difficult time describing the pain. It sounds like it sharp. The pain is all across her lumbar back. The pain is worse with movement. It does not radiate. She denies bowel or bladder dysfunction. She has been in bed quite a bit. She was diagnosed with COVID-19 about a month ago. She has had some diarrhea recently. She has had a recent UTI. She denies any urinary symptoms at this time. She has not had a fever. Review of Systems - Review of Systems All Other Systems: All systems neg except as marked Medical History (Last Reviewed 07/04/20 @ 17:32 by Rasta Mart MD) Bowel and bladder incontinence (Chronic) Syncope and collapse (Acute) 1 time event last Wednesday. Insomnia (Chronic) Anxiety (Chronic) Chronic UTI (Chronic) sees dr hughes[facility] Arthritis (Chronic) Hypertension (Chronic) sees dr vivar- [facility] cards [facility]rial [facility] Alzheimer disease (Chronic) sees dr lin Surgical History: Surgical History (Last Reviewed 07/04/20 @ 17:33 by Rasta Matr MD) History of appendectomy History of cholecystectomy Knee joint replacement by other means Family History: Family History (Last Reviewed 07/04/20 @ 17:33 by Rasta Mart MD) Mother , age 94 Hypertension Cancer liver cancer Father , age 90's Hypertension Pulmonary embolism Social History: (Last Reviewed 07/04/20 @ 17:33 by Rasta Mart MD) Social History: group home: No Marital status: / household members: other current occupational status: retired 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 She appears to be in no distress at rest. Head Exam: Present: normal inspection, no evidence of injury Eye Exam: Normal inspection: bilateral Ears, Nose, Throat: Present: normal ENT inspection Neck: Present: normal inspection, supple Respiratory: Present: no respiratory distress, normal breath sounds - Anteriorly Cardiovascular/Chest: Present: regular rate, rhythm, no murmur, normal peripheral pulses Gastrointestinal/Abdominal: Present: normal bowel sounds, nondistended, soft, no organomegaly, tenderness - She has pain with palpation. It seems to cause increased pain in her back. Extremity Exam: Present: normal inspection, non-tender Neurological Exam: Present: alert, oriented, normal mood/affect, no motor/sensory deficits - She has normal sensation to light touch and push/pull of the lower extremities. Reflexes are decreased bilaterally. Skin Exam: Present: normal color, warm/dry Progress - Date and Time Seen: Date and Time: 07/04/20 22:50 The patient was initially given morphine, orphenadrine, and Benadryl.. She went to CAT scan. After coming back, she still complained of significant pain and cried out in pain with certain movements. She asked if she was going to be admitted. She was given 2 tabs of hydrocodone/acetaminophen. I spoke with her again after the CT results were available. She still did not feel like she would be able to go home and thought she would be better off staying in the hospital overnight. I spoke with Dr. Grace, who agreed to keep the patient here for observation. - Results and Orders Patient's Lab Results:: I have reviewed the patient's lab results. Results and Orders: CT Lumbar W/O *~ Exam Date: 07/04/2020 18:37 Ordering Physician: Rasta Mart MD HISTORY: Severe back pain UNENHANCED CT SCAN OF THE LUMBAR SPINE. COMPARISON: None Technique: Axial CT images were obtained through the lumbar spine without the use of IV or myelographic contrast. Sagittal and coronal reconstructions were obtained. Individualized dose optimization technique was used for the performed procedure including automated exposure control, adjustment of the mA and/or kV according to patient size and/or the iterative reconstruction technique. Findings: There is diffuse osteopenia. The lumbar spine maintains a normal lordotic curvature on the sagittal images but there is a lumbar scoliosis with convexity directed to the left on the coronal images. There are 5 lumbar type vertebrae. There is a compression fracture involving T11, which is chronic in appearance. I do not see evidence for definable acute compression fracture, spondylolysis, or spondylolisthesis. There is diffuse disc space narrowing involving the lumbar spine with varying degrees of degenerative spurring involving the endplates. There is marked degenerative spurring involving the facet joints of the mid to lower lumbar spine. The disc material is suboptimally visualized on this study. There is mild canal stenosis at L2/3, mild to moderate Canal stenosis at L3/4, and marked canal stenosis at L4/5. There is arteriosclerotic calcification within the aorta without focal aneurysm. The paraspinal musculature appears normal and I do not see evidence for hematoma or retroperitoneal adenopathy. IMPRESSION: 1. CHRONIC APPEARING COMPRESSION FRACTURE INVOLVING T11. 2. MODERATE DEGENERATIVE SPURRING INVOLVING THE FACET JOINTS OF THE MID TO LOWER LUMBAR SPINE 3. NO DEFINABLE ACUTE OSSEOUS ABNORMALITY. 4. DIFFUSE DISC SPACE NARROWING WITH DEGENERATIVE SPURRING IN THE ENDPLATES. THERE IS MILD CANAL STENOSIS AT L2/3, MILD TO MODERATE CANAL STENOSIS AT L3/4, AND MARKED CANAL STENOSIS AT L4/5. 5. FOLLOW-UP MRI OF THE LUMBAR SPINE IS RECOMMENDED. Electronically signed by Higinio Be M.D.. - Vital Signs Patient's Vital Signs:: I have reviewed the patient's vital signs. Vital Signs: Vital Signs 07/04/20 13:32 Temperature 35.7 C L Pulse Rate 77 Respiratory Rate 16 Blood Pressure 149/63 O2 Sat by Pulse Oximetry 96 - CT/Ultrasound CT/Ultrasound Narrative: CT Lumbar W/O *~ Exam Date: 07/04/2020 18:37 Ordering Physician: Rasta Mart MD HISTORY: Severe back pain UNENHANCED CT SCAN OF THE LUMBAR SPINE. COMPARISON: None Technique: Axial CT images were obtained through the lumbar spine without the use of IV or myelographic contrast. Sagittal and coronal reconstructions were obtained. Individualized dose optimization technique was used for the performed procedure including automated exposure control, adjustment of the mA and/or kV according to patient size and/or the iterative reconstruction technique. Findings: There is diffuse osteopenia. The lumbar spine maintains a normal lordotic curvature on the sagittal images but there is a lumbar scoliosis with convexity directed to the left on the coronal images. There are 5 lumbar type vertebrae. There is a compression fracture involving T11, which is chronic in appearance. I do not see evidence for definable acute compression fracture, spondylolysis, or spondylolisthesis. There is diffuse disc space narrowing involving the lumbar spine with varying degrees of degenerative spurring involving the endplates. There is marked degenerative spurring involving the facet joints of the mid to lower lumbar spine. The disc material is suboptimally visualized on this study. There is mild canal stenosis at L2/3, mild to moderate Canal stenosis at L3/4, and marked canal stenosis at L4/5. There is arteriosclerotic calcification within the aorta without focal aneurysm. The paraspinal musculature appears normal and I do not see evidence for hematoma or retroperitoneal adenopathy. IMPRESSION: 1. CHRONIC APPEARING COMPRESSION FRACTURE INVOLVING T11. 2. MODERATE DEGENERATIVE SPURRING INVOLVING THE FACET JOINTS OF THE MID TO LOWER LUMBAR SPINE 3. NO DEFINABLE ACUTE OSSEOUS ABNORMALITY. 4. DIFFUSE DISC SPACE NARROWING WITH DEGENERATIVE SPURRING IN THE ENDPLATES. THERE IS MILD CANAL STENOSIS AT L2/3, MILD TO MODERATE CANAL STENOSIS AT L3/4, AND MARKED CANAL STENOSIS AT L4/5. 5. FOLLOW-UP MRI OF THE LUMBAR SPINE IS RECOMMENDED. Electronically signed by Higinio Be M.D.. - Progress/Reassessment Chief Complaint: Back Pain Departure Clinical Impression: UTI (urinary tract infection), Back spasm - Departure Disposition: Short Term Hospital Inpatient Condition: Fair
[2020-07-04 18:33] LABS: Urine Bilirubin Negative (NEGATIVE); Urine Blood Negative /ul (NEGATIVE); Urine Ketone Negative (NEGATIVE); Urine Nitrite Negative (NEGATIVE); Urine Protein 15 mg/dL (NEGATIVE); Urine Specific Gravity 1.015 SP.GR. (1.005-1.010); Urine Urobilinogen Normal (NORMAL)
[2020-07-04 18:41] LABS: Urine Color Yellow
[2020-07-04 18:42] LABS: Urine Appearance Cloudy (CLEAR); Urine Bacteria 2+; Urine RBC 0-5 /hpf (0-5); Urine Transitional Epi Cells Few - 1+ /hpf; Urine WBC 25-50 /hpf (0-5)
[2020-07-04] MEDS ORDERED: CEFUROXIME AXETIL 500 MG TABLET PO ONE (19:06)
[2020-07-04] MEDS ORDERED: HYDROcodone/ACETAMINOPHEN 1 EACH TABLET PO ONE (19:06)
[2020-07-04] MEDS ORDERED: CYCLOBENZAPRINE HCL 10 MG TABLET PO ONE (23:13)
[2020-07-04] MEDS ORDERED: LORazepam 0.5 MG TABLET PO PRN (23:23)
[2020-07-04] MEDS ORDERED: MELATONIN 3,000 MCG TABLET ONE (23:35)
[2020-07-04] MEDS: METOPROLOL TARTRATE 25 MG TABLET PO SCH (23:39)
[2020-07-04] MEDS: APIXABAN 2.5 MG TABLET PO SCH (23:39)
[2020-07-04] MEDS: PROPAFENONE HCL 150 MG TABLET PO SCH (23:40)
[2020-07-05] MEDS ORDERED: DOCUSATE SODIUM 100 MG CAPSULE PO PRN (07:14)
[2020-07-05] MEDS ORDERED: ONDANSETRON 8 MG TAB.RAPDIS PO PRN (07:14)
[2020-07-05] MEDS ORDERED: LORazepam 0.5 MG TABLET PO PRN (07:14)
[2020-07-05] MEDS ORDERED: BISMUTH SUBSALICYLATE PO PRN (07:14)
[2020-07-05] MEDS ORDERED: CALCIUM CARBONATE 500 MG TAB.CHEW PO PRN (07:37)
[2020-07-05] MEDS ORDERED: CODEINE PHOSPHATE/GUAIFENESIN 5 ML UDC PO PRN (07:40)
--- NOTE | 2020-07-05 08:03 | HP ---
Chief Complaint - Chief Complaint Date of Service: 07/05/20 Time of Service: 07:10 Chief Complaint: Back pain History of Present Illness: Forest is an 89-year-old female patient well-known to me who lives at the [facility]. She started having low back pain about 2 weeks ago and the [facility] requested Tylenol to be given on a regular schedule which we did. Back pain intensified and she became worse. Yesterday morning they called asking for some Tylenol with codeine which I prescribed within before she was able to take any of it was brought to the hospital because of unrelenting back pain. In the emergency room she was given morphine and Norflex IM and then went to CAT scan. When she came back she is still having severe pain did not think that she could go back to her residence. The CAT scan shows an old compression fracture at T11-T12 and degenerative disc disease and some degenerative arthritis consistent with age. No acute bony injuries are visualized. She is admitted to observation and for pain management. This morning she is sleeping soundly and is in no distress. Medical History (Last Reviewed 07/04/20 @ 17:32 by Rasta Mart MD) Bowel and bladder incontinence (Chronic) Syncope and collapse (Acute) 1 time event last Wednesday. Insomnia (Chronic) Anxiety (Chronic) Chronic UTI (Chronic) sees dr ferreira [facility] u[facility] Arthritis (Chronic) Hypertension (Chronic) sees dr hope [facility] cards Atrial fibrillation ([facility]ronic[facility] Alzheimer disease (Chronic) sees dr lin Surgical History: Surgical History (Last Reviewed 07/04/20 @ 17:33 by Rasta Mart MD) History of appendectomy History of cholecystectomy Knee joint replacement by other means Family History: Family History (Last Reviewed 07/04/20 @ 17:33 by Rasta Mart MD) Mother , age 94 Hypertension Cancer liver cancer Father , age 90's Hypertension Pulmonary embolism Social History: (Last Reviewed 07/04/20 @ 17:33 by Rasta Mart MD) Social History: residential: No Marital status: / household members: other current occupational status: retired 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 Highest level of school completed/degree received: high school graduate Service: No Tobacco: Smoking Status: Never smoker Alcohol: alcohol intake: never Substance Use: substance use type: does not use Dietary Habits: caffeine: No 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 Review Of Systems (GEN) - Review of Systems Generalized/Overall Review: Present: Weakness EENTM: Present: No Symptoms Reported Respiratory: Present: No Symptoms Reported Cardiac: Present: No Symptoms Reported Abdominal: Present: No Symptoms Reported Genitourinary: Present: No Symptoms Reported Musculoskeletal: Present: Back Pain Neurological: Present: No Symptoms Reported Skin: Present: No Symptoms Reported Endocrine: Present: No Symptoms Reported Immunizations: IMMUNIZATION HX Immunizations Up to Date Yes History of Influenza Vaccine Yes Hx Pneumococcal Vaccination No Allergies/Adverse Reactions: Allergies Allergy/AdvReac Type Severity Reaction Status Date / Time No Known Allergies Allergy Verified 07/04/20 13:57 Home Medications: HOME MEDICATIONS acetaminophen 325 mg tablet 650 mg PO Q4H PRN tab 12/12/18 [Last Taken Unknown] apixaban 5 mg tablet 2.5 mg PO BID 12/12/18 [Last Taken Unknown] calcium carbonate 500 mg calcium (1,250 mg) chewable tablet 500 mg PO BID PRN 12/12/18 [Last Taken Unknown] docusate sodium 100 mg capsule 100 mg PO BID PRN 12/12/18 [Last Taken Unknown] metoprolol tartrate 25 mg tablet 12.5 mg PO BID tab 12/12/18 [Last Taken Unknown] valacyclovir 500 mg tablet 1,000 mg PO Q8H PRN #6 tab 12/14/18 [Last Taken U nknown] cranberry fruit 450 mg tablet 450 mg PO DAILY 07/18/19 [Last Taken Unknown] lorazepam 0.5 mg tablet 0.5 mg PO TID PRN #90 tab 04/22/20 [Last Taken Unknown] ondansetron 8 mg disintegrating tablet 8 mg PO Q8H PRN #20 tab 06/18/20 [Last Taken Unknown] Acetaminophen 500 mg PO PRN 07/04/20 [Last Taken Unknown] Ascorbic Acid [Vitamin C] 500 mg PO BID 07/04/20 [Last Taken Unknown] Bacillus Coagulans/Inulin [Probiotic Formula (inulin)] 1 cap PO BID 07/04/20 [Last Taken Unknown] Bismuth Subsalicylate [Pepto Bismol 262 MG/15 ML Suspension] 15 ml PO QID PRN 07/04/20 [Last Taken Unknown] Cholecalciferol (Vitamin D3) [Vitamin D3] 1,000 unit PO DAILY 07/04/20 [Last Taken Unknown] Cyanocobalamin (Vitamin B-12) [Vitamin B-12] 1,000 mcg PO DAILY 07/04/20 [Last Taken Unknown] Donepezil HCl 1 tab PO 1800 07/04/20 [Last Taken Unknown] Estradiol 0.5 gm VG TUFR 07/04/20 [Last Taken Unknown] Guaifenesin/Codeine Phosphate [Guaifenesin-Codeine Liquid] 5 ml PO Q6H PRN 07/04/20 [Last Taken Unknown] Loperamide HCl [Anti-Diarrheal] 2 mg PO TID 07/04/20 [Last Taken Unknown] Loperamide HCl [Imodium A-D] 2 mg PO DAILY PRN 07/04/20 [Last Taken Unknown] Magnesium Carb/Aluminum Hydrox [Gaviscon Es Tablet Chew] 2 tab PO BID PRN 07/04/20 [Last Taken Unknown] Melatonin [Melatin] 3 mg PO 1800 07/04/20 [Last Taken Unknown] Methenamine Hippurate 1 tab PO DAILY 07/04/20 [Last Taken Unknown] Omeprazole 1 tab PO DAILY 07/04/20 [Last Taken Unknown] Propafenone HCl 1 tab PO BID 07/04/20 [Last Taken Unknown] Exam - Exam Vital Signs: Vital Signs - Last Taken Temp 37.2 C 07/05/20 06:59 Pulse 66 07/05/20 06:59 Resp 18 07/05/20 06:59 BP 142/53 07/05/20 06:59 Pulse Ox 92 L 07/05/20 02:18 Constitutional: Present: Alert, Oriented x3, Cooperative, Elderly, Thin and frail ENT Exam: Present: normal ENT inspection, hearing grossly normal, pharynx normal, TMs normal Eye Exam: bilateral eye: normal inspection, PERRL, EOMI Neck: Present: non-tender, supple, normal inspection, limited range of motion Back Exam: Present: normal inspection, no CVA tenderness, decreased range of motion, muscle spasm, vertebral tenderness Breasts: Present: Exam deferred Respiratory: Present: chest non-tender, lungs clear, normal breath sounds, no respiratory distress, no accessory muscle use Cardiovascular/Chest: Present: normal peripheral pulses, regular rate, rhythm, no chest tenderness, no edema, no gallop, no JVD, no murmur, no rub Peripheral Pulses: carotid (R): 2+, carotid (L): 2+, radial (R): 2+, radial (L): 2+ Abdomen: Present: Normal bowel sounds, soft, nontender, nondistended, no rebound tenderness, no hepatospenomegaly, no masses /Rectal: Present: Exam deferred Extremity: Present: normal range of motion, non-tender, normal inspection, no pedal edema, no calf tenderness, normal capillary refill Skin Exam: Present: normal color, warm/dry Lymphatic: Present: no adenopathy Neurologic: Present: system admin II-XII nml as tested Appearance: Present: appropriate appearance, appropriate insight, neat, no memory impairment Eye contact: Present: cooperative, good eye contact, normal speech Thoughts: Present: normal thought pattern, no apparent hallucination Diagnostic Studies: Abnormal Lab Results 07/04/20 Range/Units 18:16 Urine Protein 15 H (NEGATIVE) mg/dL Ur Leukocyte Esterase 100 H (NEGATIVE) /ul Urine WBC 25-50 H (0-5) /hpf Ur Epithelial Cells 10-25 H (0-5) /hpf Ur Transition Epith Cell Few - 1+ H (NONE) /hpf Urine Bacteria 2+ H (NONE) Microbiology 07/04/20 18:16 Urine Culture - Preliminary Urine,Catheterized Gram Negative Bacilli Laboratory Results Urine Color Yellow 07/04/20 18:16 Urine Appearance Cloudy (CLEAR) 07/04/20 18:16 Urine pH 5.0 pH (5.0-7.0) 07/04/20 18:16 Ur Specific [place] 1.015 SP.GR. (1.005-1.010) 07/04/20 18:16 Urine Protein 15 mg/dL (NEGATIVE) H 07/04/20 18:16 Urine Glucose (UA) Negative mg/dL (NEGATIVE) 07/04/20 18:16 Urine Ketones Negative mg/dL (NEGATIVE) 07/04/20 18:16 Urine Blood Negative /ul (NEGATIVE) 07/04/20 18:16 Urine Nitrate Negative (NEGATIVE) 07/04/20 18:16 Urine Bilirubin Negative mg/dl (NEGATIVE) 07/04/20 18:16 Prot Sulfosalicylic Acd 1+ mg/dL (0) 07/04/20 18:16 Urine Urobilinogen Normal EU/dl (NORMAL) 07/04/20 18:16 Ur Leukocyte Esterase 100 /ul (NEGATIVE) H 07/04/20 18:16 Urine RBC 0-5 /hpf (0-5) 07/04/20 18:16 Urine WBC 25-50 /hpf (0-5) H 07/04/20 18:16 Ur Epithelial Cells 10-25 /hpf (0-5) H 07/04/20 18:16 Ur Transition Epith Cell Few - 1+ /hpf (NONE) H 07/04/20 18:16 Urine Bacteria 2+ (NONE) H 07/04/20 18:16 Urine Culture Comments Culture to follow 07/04/20 18:16 Assessment/Plan - Narrative Narrative: 1. Establish pain medication adequate control it when she goes home. 2. Have physical therapy evaluate this morning and recommend therapies. 3. Continued most of her usual home meds. 4. CBC and CMP ordered this morning 5. Urinalysis was done on admission which shows a probable UTI. Cultures are pending. - Assessment/Plan (1) Low back pain Problem: Acute Qualifiers: Chronicity: acute Back pain laterality: bilateral Sciatica presence: without sciatica Qualified Code(s): M54.5 - Low back pain (2) Back spasm Problem: Acute (3) Difficulty walking Problem: Chronic (4) Hypertension Problem: Chronic Qualifiers: Hypertension type: essential hypertension (5) Alzheimer disease Problem: Chronic Qualifiers: Alzheimer's disease onset: late-onset (6) UTI (urinary tract infection) Problem: Acute Qualifiers: Urinary tract infection type: acute cystitis
[2020-07-05] MEDS ORDERED: CEFUROXIME AXETIL 500 MG TABLET PO SCH (08:15)
--- NOTE | 2020-07-05 08:17 | PN ---
Subjective - Date and Time Seen Date: 07/05/20 Time: 07:10 Subjective Narrative: Forest was admitted last night with severe intractable low back pain. She was given pain medication and muscle relaxants in the ER and then I have given her Tylenol with codeine through the night. She has rested well through the night and this morning does not seem to be having very much pain while still in bed. She has some discomfort when she rolls from side to side. We have yet to see how she will do when she sits up or tries to stand. Physical therapy will see her later this morning to evaluate. Objective - Review of Systems Generalized/Overall Review: Reports: Weakness EENTM: Reports: No Symptoms Reported Respiratory: Reports: No Symptoms Reported Cardiac: Reports: No Symptoms Reported Abdominal: Reports: No Symptoms Reported Genitourinary Symptoms: Reports: No Symptoms Reported Musculoskeletal Complaints: Reports: Back Pain Neurological: Reports: No Symptoms Reported Skin: Reports: No Symptoms Reported Endocrine: Reports: No Symptoms Reported - Vitals Vitals: Last Vital Signs Temp 37.2 C 07/05/20 06:59 Pulse 66 07/05/20 06:59 Resp 18 07/05/20 06:59 BP 142/53 07/05/20 06:59 Pulse Ox 92 L 07/05/20 02:18 - Abnormal Lab Findings Abnormal Lab Findings: Abnormal Lab Results 07/04/20 Range/Units 18:16 Urine Protein 15 H (NEGATIVE) mg/dL Ur Leukocyte Esterase 100 H (NEGATIVE) /ul Urine WBC 25-50 H (0-5) /hpf Ur Epithelial Cells 10-25 H (0-5) /hpf Ur Transition Epith Cell Few - 1+ H (NONE) /hpf Urine Bacteria 2+ H (NONE) - EKG/Xray Findings XRAY: lumbrosacral Interpretation: Reviewed by me - Exam Constitutional: Present: Alert, Oriented x3, Cooperative, Elderly, Thin and frail ENT Exam: Present: normal ENT inspection, hearing grossly normal, pharynx normal, TMs normal Neck: Present: non-tender, full range of motion Breasts: Present: Exam deferred Respiratory: Present: chest non-tender, lungs clear, normal breath sounds, no respiratory distress, no accessory muscle use Cardiovascular/Chest: Present: normal peripheral pulses, regular rate, rhythm, no chest tenderness, no edema, no JVD, no murmur, no rub Abdomen: Present: Normal bowel sounds, soft, nontender, nondistended /Rectal: Present: Exam deferred Extremity: Present: normal range of motion Skin Exam: Present: normal color, warm/dry, no cyanosis Lymphatic: Present: no adenopathy Neurologic: Present: maple sugar maker II-XII nml as tested, motor weakness Appearance: Present: appropriate appearance, appropriate insight, neat, impaired recent memory Eye contact: Present: cooperative, good eye contact, normal speech Thoughts: Present: normal thought pattern, no apparent hallucination Assessment/Plan Plan Narrative: 1. Continue Tylenol with codeine. 2. Add cyclobenzaprine 5 mg 3 times daily scheduled 3. Physical therapy to evaluate and recommend therapy 4. Continue Ceftin 500 mg twice daily for UTI. - Problems/Diagnosis (1) Low back pain Problem: Acute Qualifiers: Chronicity: acute Back pain laterality: bilateral Sciatica presence: without sciatica Qualified Code(s): M54.5 - Low back pain (2) Back spasm Problem: Acute (3) Difficulty walking Problem: Chronic (4) Hypertension Problem: Chronic Qualifiers: Hypertension type: essential hypertension (5) Alzheimer disease Problem: Chronic Qualifiers: Alzheimer's disease onset: late-onset (6) UTI (urinary tract infection) Problem: Acute Qualifiers: Urinary tract infection type: acute cystitis
[2020-07-05 08:39] LABS: Hematocrit 42.1 % (37.0-47.0); Hemoglobin 13.3 gm/dL (12.5-16.0); Mean Cell Volume 86.1 fl (78-100); Mean Corpuscular Hemoglobin 27.2 pg (27-31); Mean Corpuscular Hgb Conc 31.6 g/dl (32-36); Neutrophil % 85.9 % (42-75.0); Platelet Count 302 K/mm3 (150-450); Red Blood Count 4.89 M/mm3 (4.2-5.4); Red Cell Distribution Width 14.1 % (11.5-14.0); White Blood Count 8.1 K/mm3 (4.0-10.5)
[2020-07-05] MEDS: ACETAMINOPHEN WITH CODEINE 1 EACH TABLET PO PRN ×2 (08:50→14:56)
[2020-07-05 08:56] LABS: Albumin * 2.8 gm/dl (3.4-5.0); Anion Gap 12.1 mmol/L (6.8-13.8); BUN/Creatinine Ratio 17.6 (9.0-21.6); Bilirubin, Total 0.5 mg/dL (0.0-1.1); Ca. Corrected For Albumin 9.9 mg/dL (8.4-10.2); Calcium * 9.3 mg/dL (7.9-10.9); Carbon Dioxide 29.2 mmol/L (24-32.6); Potassium 4.3 mmol/L (3.4-4.6); Total Protein 7.4 gm/dL (6.2-8.2)
[2020-07-05] MEDS ORDERED: ESTRADIOL VG SCH (09:00)
[2020-07-05] MEDS ORDERED: METOPROLOL TARTRATE 25 MG TABLET PO SCH (09:00)
[2020-07-05] MEDS ORDERED: Methenamine Hippurate 1 GM PO SCH (09:00)
[2020-07-05] MEDS ORDERED: APIXABAN 5 MG TABLET PO SCH (09:00)
[2020-07-05] MEDS ORDERED: PROPAFENONE HCL 150 MG TABLET PO SCH (09:00)
[2020-07-05] MEDS ORDERED: PROBIOTIC FORMULA PO SCH (09:00)
[2020-07-05] MEDS ORDERED: CHOLECALCIFEROL 1,000 UNIT CAPSULE PO SCH (09:00)
[2020-07-05] MEDS: CYCLOBENZAPRINE HCL 10 MG TABLET PO SCH ×2 (10:00→14:56)
[2020-07-05] MEDS: PROPAFENONE HCL 150 MG TABLET PO SCH ×2 (10:01→10:55)
[2020-07-05] MEDS: APIXABAN 2.5 MG TABLET PO SCH (10:01)
[2020-07-05] MEDS: METOPROLOL TARTRATE 25 MG TABLET PO SCH (10:02)
--- NOTE | 2020-07-05 13:16 | DS ---
(1) Low back pain Problem: Acute Qualifiers: Chronicity: acute Back pain laterality: bilateral Sciatica presence: without sciatica Qualified Code(s): M54.5 - Low back pain (2) Back spasm Problem: Acute (3) Difficulty walking Problem: Chronic (4) Hypertension Problem: Chronic Qualifiers: Hypertension type: essential hypertension (5) Alzheimer disease Problem: Chronic Qualifiers: Alzheimer's disease onset: late-onset (6) UTI (urinary tract infection) Problem: Acute Qualifiers: Urinary tract infection type: acute cystitis Date of Discharge:: 07/05/20 Hospital Course: Forest Gibson is an 89-year-old patient who was admitted with severe low back pain. She has received pain medicine and muscle relaxers and is doing some better. Physical therapy has seen her and believes conservative measures should be considered. They also recommended outpatient physical therapy by home health which has been arranged for through [facility]. Otherwise she has been very stable. She will be discharged back to the [facility]. [id number] for [facility] for physical therapy: Forest Gibson is confined to her residence due to severe low back pain and poor mobility. The need for senior living is for medication monitoring and management, monitoring of vital signs, assessing pain. The need for physical therapy is for treatment of her low back pain and improvement of mobility. The need for occupational therapy is improvement in activities of daily living and independence. The need for home health care skilled services is directly related to the time spent [id number] with the patient. Procedures Performed: none Results and Findings: Pending Mircobiology Results 07/04/20 18:16 Urine,Catheterized Urine Culture - Preliminary Gram Negative Bacilli Lab Pending Results 07/04/20 18:16: Urine Color Yellow, Urine Appearance Cloudy, Urine pH 5.0, Ur Specific [place] 1.015, Urine Protein 15 H, Urine Glucose (UA) Negative, Urine Ketones Negative, Urine Blood Negative, Urine Nitrate Negative, Urine Bilirubin Negative, Prot Sulfosalicylic Acd 1+, Urine Urobilinogen Normal, Ur Leukocyte Esterase 100 H, Urine RBC 0-5, Urine WBC 25-50 H, Ur Epithelial Cells 10-25 H, Ur Transition Epith Cell Few - 1+ H, Urine Bacteria 2+ H, Urine Culture Comments Culture to follow 07/05/20 08:30: WBC 8.1, RBC 4.89, Hgb 13.3, Hct 42.1, MCV 86.1, MCH 27.2, MCHC 31.6 L, RDW 14.1 H, Plt Count 302, MPV 9.0, Immature Gran % (Auto) 0.40, Immature Gran # (Auto) 0.03, Neutrophils % 85.9 H, Lymphocytes % 7.0 L, Monocytes % 4.8, Eosinophils % 1.5, Basophils % 0.4, Nucleated RBC % 0.0, Neutrophils # 7.0 H, Lymphocytes # 0.57 L, Monocytes # 0.4, Eosinophils # 0.1, Absolute Basophils 0.0 07/05/20 08:30: Sodium 137, Plasma Sodium 137, Potassium 4.3, Chloride 100, Carbon Dioxide 29.2, Anion Gap 12.1, BUN 15, Creatinine 0.85, Est GFR (Non-Af Amer) 67 D, BUN/Creatinine Ratio 17.6, Random Glucose 130 H, Calcium 9.3, Calcium Adj for Albumin 9.9, Total Bilirubin 0.5, AST 23, ALT 14 L, Alkaline Phosphatase 106, Total Protein 7.4, Albumin 2.8 L Discharge Location: [facility] Disposition: [facility] Home Health Agency: [facility] Condition: Fair Face to Face Encounter completed per [facility] Guidelines: Yes Discharge Activity: Activity as tolerated Discharge Diet: General/regular food Referrals: Papo Grace DO [Primary Care Provider] - Additional Patient Instructions (free text): Please fax discharge to [facility] and to [facility]. Complete Home Medications List: Complete Home Medication List: acetaminophen 325 mg tablet 650 mg PO Q4H PRN tab 12/12/18 apixaban 5 mg tablet 2.5 mg PO BID 12/12/18 calcium carbonate 500 mg calcium (1,250 mg) chewable tablet 500 mg PO BID PRN 12/12/18 docusate sodium 100 mg capsule 100 mg PO BID PRN 12/12/18 metoprolol tartrate 25 mg tablet 12.5 mg PO BID tab 12/12/18 valacyclovir 500 mg tablet 1,000 mg PO Q8H PRN #6 tab 12/14/18 cranberry fruit 450 mg tablet 450 mg PO DAILY 07/18/19 lorazepam 0.5 mg tablet 0.5 mg PO TID PRN #90 tab 04/22/20 ondansetron 8 mg disintegrating tablet 8 mg PO Q8H PRN #20 tab 06/18/20 Acetaminophen 500 mg PO PRN 07/04/20 Ascorbic Acid [Vitamin C] 500 mg PO BID 07/04/20 Bacillus Coagulans/Inulin [Probiotic Formula Capsule] 1 cap PO BID 07/04/20 Bismuth Subsalicylate [Pepto Bismol 262 MG/15 ML Suspension] 15 ml PO QID PRN 07/04/20 Cholecalciferol (Vitamin D3) [Vitamin D3] 1,000 unit PO DAILY 07/04/20 Cyanocobalamin (Vitamin B-12) [Vitamin B-12] 1,000 mcg PO DAILY 07/04/20 Donepezil HCl 1 tab PO 1800 07/04/20 Estradiol 0.5 gm VG TUFR 07/04/20 Guaifenesin/Codeine Phosphate [Guaifen-Codeine 100-10 mg/5 ml] 5 ml PO Q6H PRN 07/04/20 Loperamide HCl [Anti-Diarrheal] 2 mg PO TID 07/04/20 Loperamide HCl [Imodium A-D] 2 mg PO DAILY PRN 07/04/20 Magnesium Carb/Aluminum Hydrox [Gaviscon Es Tablet Chew] 2 tab PO BID PRN 07/04/20 Melatonin [Melatin] 3 mg PO 1800 07/04/20 Methenamine Hippurate 1 tab PO DAILY 07/04/20 Omeprazole 1 tab PO DAILY 07/04/20 Propafenone HCl 1 tab PO BID 07/04/20 Acetaminophen with Codeine [Tylenol-Codeine 300 MG/30 MG] 2 ea PO Q6H PRN #60 tab 07/05/20 Apixaban [Eliquis] 2.5 mg PO BID tablet 07/05/20 Cefuroxime Axetil [Ceftin] 500 mg PO Q12H #14 tab 07/05/20 Cyclobenzaprine HCl [Flexeril] 5 mg PO TID #45 tab 07/05/20 LORazepam [Ativan] 0.5 mg PO TID PRN tablet 07/05/20 Melatonin 3,000 mcg PO HS tablet 07/05/20 Metoprolol Tartrate [Lopressor] 12.5 mg PO BID tablet 07/05/20 Propafenone HCl [Rythmol] 150 mg PO Q12H tablet 07/05/20
[2020-07-05 14:43] VITALS: BP 154/55
[2020-07-05] MEDS ORDERED: MELATONIN 3,000 MCG TABLET PO SCH ×2 (18:00→21:00)
[2020-07-05] MEDS ORDERED: DONEPEZIL HCL 10 MG TABLET PO SCH (18:00)
[2020-07-06] MEDS ORDERED: PANTOPRAZOLE SODIUM 20 MG TABLET.DR PO SCH (07:00)
== END 2020-07-05 15:55 | disposition home health service (06) ==
LOC: MS 13:31 → ER 13:31 → MS 21:15
PROVIDERS: ADMIT Family Medicine; ATTEND Family Medicine
DX: G30.1 Alzheimer's disease with late onset; I10 Essential (primary) hypertension; M54.5 Low back pain; M84.48XA Pathological fracture, other site, initial encounter for fracture; N30.00 Acute cystitis without hematuria; F02.80 Dementia in other diseases classified elsewhere, unspecified severity, without behavioral disturbance, psychotic disturbance, mood disturbance, and anxiety; R26.2 Difficulty in walking, not elsewhere classified